=== PATIENT | male | born 1930 | race Caucasian/White ===

== ENCOUNTER 2018-09-01 01:08 | Emergency (ER) | payer MEDICARE, OTHER ==
[~2018-09-01] VITALS: Ht 182.9 cm; Wt 90.9 kg
[2018-09-01 01:13] VITALS: BP 123/54
[2018-09-01] MEDS ORDERED: HYDR-3965 PO (02:02)
== END 2018-09-01 02:30 | disposition home or self-care (01) ==
LOC: ER 01:08
DX: G89.29 Other chronic pain (principal); M19.042 Primary osteoarthritis, left hand; M19.041 Primary osteoarthritis, right hand; J44.9 Chronic obstructive pulmonary disease, unspecified; E11.9 Type 2 diabetes mellitus without complications; Z98.890 Other specified postprocedural states
CPT/HCPCS: 99283

== ENCOUNTER 2018-09-05 19:20 | Emergency (ER) | payer MEDICARE, OTHER ==
[~2018-09-05] VITALS: Ht 182.9 cm; Wt 81.8 kg
[~2018-09-05 19:20] MED LIST: HYDR-3965 PO
[2018-09-05 19:29] VITALS: BP 122/78
[2018-09-05] MEDS ORDERED: HYDR-3965 PO (20:19)
== END 2018-09-05 20:26 | disposition home or self-care (01) ==
LOC: ER 19:21
DX: G89.29 Other chronic pain (principal); Z76.0 Encounter for issue of repeat prescription; J44.9 Chronic obstructive pulmonary disease, unspecified; E11.9 Type 2 diabetes mellitus without complications; Z98.890 Other specified postprocedural states; Z79.899 Other long term (current) drug therapy
CPT/HCPCS: 99283